=== PATIENT | male | born 2000 | race Caucasian/White ===

== ENCOUNTER 2019-09-07 06:00 | Outpatient (RCR) | payer OTHER, MEDICAID, SELFPAY | END 2019-10-07 00:01 | LOC: SST 06:00 | PROVIDERS: Family Provider Family Medicine; Visit Provider Family Medicine | DX: F84.0 Autistic disorder (principal); F80.9 Developmental disorder of speech and language, unspecified | CPT/HCPCS: 92507 ×5 ==

== ENCOUNTER 2019-10-08 06:00 | Outpatient (RCR) | payer OTHER, MEDICAID, SELFPAY | END 2019-11-07 23:59 | disposition home or self-care (01) | LOC: SST 06:00 | PROVIDERS: Family Provider Family Medicine; PCP Family Medicine; Visit Provider Family Medicine | DX: F84.0 Autistic disorder (principal); F80.2 Mixed receptive-expressive language disorder | CPT/HCPCS: 92507 ==

== ENCOUNTER 2019-11-08 06:00 | Outpatient (RCR) | payer OTHER, MEDICAID, SELFPAY | END 2019-12-06 23:59 | disposition home or self-care (01) | LOC: SST 06:00 | PROVIDERS: Family Provider Family Medicine; PCP Family Medicine; Visit Provider Family Medicine | DX: F84.0 Autistic disorder (principal); F80.9 Developmental disorder of speech and language, unspecified | CPT/HCPCS: 92507 ==

== ENCOUNTER 2019-12-07 06:00 | Outpatient (RCR) | payer OTHER, MEDICAID, SELFPAY | END 2020-01-06 23:59 | disposition home or self-care (01) | LOC: SST 06:00 | PROVIDERS: Family Provider Family Medicine; PCP Family Medicine; Visit Provider Family Medicine | DX: F84.0 Autistic disorder (principal); F80.2 Mixed receptive-expressive language disorder | CPT/HCPCS: 92507 ==

== ENCOUNTER 2020-05-08 06:00 | Outpatient (RCR) | payer OTHER, MEDICAID, SELFPAY | END 2020-06-07 23:59 | disposition home or self-care (01) | LOC: SST 06:00 | PROVIDERS: PCP Family Medicine; Visit Provider Family Medicine | DX: F84.0 Autistic disorder (principal); F80.2 Mixed receptive-expressive language disorder | CPT/HCPCS: 92507 ==

== ENCOUNTER 2020-06-08 06:00 | Outpatient (RCR) | payer OTHER, MEDICAID, SELFPAY | END 2020-07-07 23:59 | disposition home or self-care (01) | LOC: SST 06:00 | PROVIDERS: PCP Family Medicine; Visit Provider Family Medicine | DX: F84.0 Autistic disorder (principal); F80.2 Mixed receptive-expressive language disorder | CPT/HCPCS: 92507 ==

== ENCOUNTER 2020-07-08 06:00 | Outpatient (RCR) | payer OTHER, MEDICAID, SELFPAY | END 2020-08-07 23:59 | disposition home or self-care (01) | LOC: SST 06:00 | PROVIDERS: PCP Family Medicine; Visit Provider Family Medicine | DX: F84.0 Autistic disorder (principal); F80.9 Developmental disorder of speech and language, unspecified | CPT/HCPCS: 92507 ==

== ENCOUNTER 2020-08-08 06:00 | Outpatient (RCR) | payer OTHER, MEDICAID, SELFPAY | END 2020-09-06 23:59 | disposition home or self-care (01) | LOC: SST 06:00 | PROVIDERS: PCP Family Medicine; Visit Provider Family Medicine | DX: F84.0 Autistic disorder (principal); F80.9 Developmental disorder of speech and language, unspecified | CPT/HCPCS: 92507 ==

== ENCOUNTER 2020-09-07 06:00 | Outpatient (RCR) | payer OTHER, MEDICAID, SELFPAY | END 2020-10-07 23:59 | disposition home or self-care (01) | LOC: SST 06:00 | PROVIDERS: PCP Family Medicine; Visit Provider Family Medicine | DX: F84.0 Autistic disorder (principal) | CPT/HCPCS: 92507 ==

== ENCOUNTER 2020-10-08 06:00 | Outpatient (RCR) | payer OTHER, MEDICAID, SELFPAY | END 2020-11-07 23:59 | disposition home or self-care (01) | LOC: SST 06:00 | PROVIDERS: PCP Family Medicine; Visit Provider Family Medicine | DX: F84.0 Autistic disorder (principal); F80.9 Developmental disorder of speech and language, unspecified | CPT/HCPCS: 92507 ==